=== PATIENT | male | born 1965 | race Caucasian/White ===

== ENCOUNTER → 2017-10-16 | Outpatient (CLI) | payer OTHER ==
--- NOTE | 2017-10-16 08:32 | MR ---
EXAMINATION TYPE: MR cervical spine wo con DATE OF EXAM ORDERED: 10/16/2017 8:16 AM HISTORY: Neck Pain With Radiculopathy. TECHNOLOGIST HISTORY AT TIME OF EXAM: Pain and Numbness in Neck and Right Shoulder x2 - 3 years COMPARISON: None. TECHNIQUE: Multiplanar, multiecho imaging of the cervical spine was obtained without contrast on a 1 .5 jolene magnet. FINDINGS: Paraspinal soft tissues are normal. Vertebral body height and alignment are maintained. Atlantoaxial relationships are normal. Cord signal is maintained. At C2-C3, no definite abnormality is seen. At C3-C4, there is mild disc space loss. There is mild, bilateral intervertebral foraminal narrowing. There is a right paracentral disc protrusion deforming the thecal sac with cord contact and mild dis placement. The facets are unremarkable. There is mild uncovertebral joint disease. At C4-C5, there is mild right-sided intervertebral foraminal narrowing. There is disc space loss and disc desiccation. There is no significant compressive discopathy. The facets are unremarkable. There is mild uncovertebral joint disease. At C5-C6, there is disc space loss. There is bilateral intervertebral foraminal narrowing. There is a small, mixed spondylitic bar present posteriorly mildly deforming the thecal sac without definite co rd contact. The facets are unremarkable. There is mild uncovertebral joint disease. At C6-C7, there is disc space loss and disc desiccation. There is mild, bilateral intervertebral fora derrell narrowing. There is a diffuse disc displacement deforming the thecal sac with cord contact but without compression. The facets are unremarkable. There is mild uncovertebral joint disease. At C7-T1, no definite abnormality is seen. IMPRESSION: 1. DIFFUSE DEGENERATIVE DISC DISEASE AND UNCOVERTEBRAL JOINT DISEASE. 2. MULTILEVEL INTERVERTEBRAL FORAMINAL NARROWING. 3. RIGHT PARACENTRAL DISC PROTRUSION, C3-4 DEFORMING THE THECAL SAC WITH CORD CONTACT AND MILD DISPLA CEMENT. 4. DIFFUSE DISC DISPLACEMENT, C6-7 DEFORMING THE THECAL SAC WITH CORD CONTACT BUT WITHOUT COMPRESSION .
== END | disposition home or self-care (01) ==
LOC: RADMRIMAIN 07:20
PROVIDERS: ATTEND Family Medicine
DX: M99.71 Connective tissue and disc stenosis of intervertebral foramina of cervical region (principal); M50.11 Cervical disc disorder with radiculopathy, high cervical region
CPT/HCPCS: 72141

== ENCOUNTER → 2018-12-27 | Outpatient (CLI) | payer OTHER ==
--- NOTE | 2018-12-29 03:18 | MR ---
EXAMINATION TYPE: MR lumbar spine wo con DATE OF EXAM: 12/27/2018 COMPARISON: None HISTORY: 53-year-old male Low back pain, radiculopathy TECHNIQUE: Multiplanar, multisequence images of the lumbar spine were acquired. FINDINGS: Vertebral body heights are preserved and alignment is maintained. Mildly decreased marrow signal diff usely on T2 without suspicious bone marrow replacement on T1. Findings suggest red marrow hyperplasia which can be seen with anemia, obesity, smoking, and chronic disease. Hypertrophic facet arthropathy mid to lower lumbar spine. Moderate to advanced degenerative disc disease, particularly at L4-L5 and L5-S1 with degenerated, jayde iccated, narrowed, and bulging discs. Conus medullaris is normal. No prevertebral paravertebral soft tissue abnormality seen. There is a component of mild congenital spinal canal narrowing mid to lower lumbar spine with AP kameron l dimension of 1.3 cm. At T12-L1, no spinal canal or neuroforaminal stenosis. At L1-L2, minimal bulging disc and mild facet degenerative change. No significant spinal canal or eron roforaminal stenosis. At L2-L3, there is diffuse disc bulge and facet degenerative change. Overall mild spinal canal narrow ing with mild bilateral neuroforaminal stenosis. At L3-L4, there is facet degenerative change and bulging disc off to the right contributing to modera te right neuroforaminal stenosis. No significant spinal canal stenosis. At L4-L5, there is diffuse disc bulge with hypertrophic facet arthropathy. Changes result in moderate to severe right and mild to moderate left neuroforaminal stenosis. Disc material at this level may a but the bilateral traversing L5 nerve roots. Impression onto the ventral thecal sac without significa nt spinal canal stenosis. At L5-S1, there is diffuse disc bulge with superimposed right paracentral disc protrusion which conta cts the traversing right S1 nerve root. Hypertrophic facet arthropathy with moderate to severe right and moderate left neuroforaminal stenosis. No spinal canal stenosis. IMPRESSION: 1. Moderate to advanced degenerative disc disease particularly at L4-L5 and L5-S1 as well as hypertro phic facet arthropathy mid to lower lumbar spine. Changes are superimposed on a mild congenital spina l canal stenosis. 2. Overall mild spinal canal stenosis at L2-L3. No renee canal compromise. 3. Variable neuroforaminal stenoses as outlined above, moderate to severe on the right at L4-L5 and L 5-S1. 4. Disc material at L4-L5 may abut the bilateral traversing L5 nerve roots. 5. A right paracentral disc herniation at L5-S1 contacts the traversing right S1 nerve root.
== END | disposition home or self-care (01) ==
LOC: RADMRIMAIN 15:02
PROVIDERS: ATTEND Physical Medicine & Rehabilitation
DX: M48.061 Spinal stenosis, lumbar region without neurogenic claudication (principal); M48.07 Spinal stenosis, lumbosacral region; M51.27 Other intervertebral disc displacement, lumbosacral region; M51.36 Other intervertebral disc degeneration, lumbar region; M51.37 Other intervertebral disc degeneration, lumbosacral region; M47.816 Spondylosis without myelopathy or radiculopathy, lumbar region
CPT/HCPCS: 72148

== ENCOUNTER → 2021-03-07 | Outpatient (CLI) | payer OTHER ==
--- NOTE | 2021-03-07 09:25 | CTL ---
EXAMINATION TYPE: CT Low Dose Lung DATE OF EXAM ORDERED: 03/07/2021 HISTORY: Long-term tobacco use. Lung cancer screening CT DLP: 138.[address] CTDI: 4.0 mGy Automated exposure control for dose reduction was used. SCREENING VISIT: Baseline COMPARISON: None TECHNIQUE: Low dose computed tomography scan was performed through the chest at 1 mm thick sections a nd reconstructed images in the coronal plane at [address] DIAGNOSTIC QUALITY: Satisfactory FINDINGS: LUNG NODULES: None. LUNGS: COPD: Severity: Mild. Fibrosis: Severity: Minimal Lymph nodes: No greater than 1cm. Other findings: None. RIGHT PLEURAL SPACE: Effusion: None Calcification: None Thickening: None Pneumothorax: None LEFT PLEURAL SPACE: Effusion: None Calcification: None Thickening: None Pneumothorax: None HEART: Heart Size: Normal. Coronary calcification: Mild. Pericardial effusion: None. OTHER FINDINGS: Upper abdomen: Postsurgical changes from gastric sleeve. Bony thorax: Moderate multilevel spurring. Supraclavicular region: None. Other: None IMPRESSION: Mild emphysematous change without suspicious nodules. CT LUNG RAD AND CT CHEST RECOMMENDATION: Lung-Rad 1 Negative: Continue annual screening with LDCT in 12 months. S Modifier (other clinically significant findings): None
== END | disposition home or self-care (01) ==
LOC: RADCTMAIN 08:50
DX: Z12.2 Encounter for screening for malignant neoplasm of respiratory organs (principal); J43.9 Emphysema, unspecified; Z87.891 Personal history of nicotine dependence
CPT/HCPCS: 71271

== ENCOUNTER 2021-12-02 08:20 | Day surgery (SDC) | payer BC ==
[2021-12-01 10:30] VITALS: BMI 37.3
[~2021-12-02 08:20] MED LIST: LACTATED RINGERS 1,000 ML IV SCH
[2021-12-02 08:58] VITALS: TEMP 98.1
[2021-12-02] MEDS ORDERED: PROPOFOL 10 MG/ML 20 ML VIAL IV ONE (09:41)
--- NOTE | 2021-12-02 10:02 | P.PCN ---
Date of Procedure: 12/02/21 Procedure(s) Performed: BRIEF HISTORY: Patient is a 56-year-old pleasant white male scheduled for an elective colonoscopy as a part of evaluation of prior history of colon polyps. Last colonoscopy was 8 years ago. PROCEDURE PERFORMED: Colonoscopy. PREOPERATIVE DIAGNOSIS: History of colon polyps. IV sedation per Anesthesia. PROCEDURE: After informed consent was obtained, the patient, was brought into the endoscopy unit. IV sedation was administered by Anesthesia under continuous monitoring. Digital rectal examination was normal. Initially the Olympus CF-160 flexible video colonoscope was then inserted in the rectum, gradually advanced into the cecum without any difficulty. Careful examination was performed as the scope was gradually being withdrawn. Ileocecal valve and the appendiceal orifice were visualized and appeared normal. Prep was excellent. Mucosa of the cecum, ascending colon, transverse colon, descending colon, sigmoid colon, and rectum appeared normal. Retroflexion was performed in the rectum and no lesions were seen. The patient tolerated the procedure well. IMPRESSION: Normal-appearing colon from rectum to cecum with no evidence of colorectal neoplasia. RECOMMENDATIONS: Findings of this examination were discussed with the patient as well as his family. He was advised to have a repeat screening colonoscopy in 10 years..
[2021-12-02 10:14] VITALS: RESP 16
[2021-12-02 10:25] VITALS: BP 122/81; PULSE 89
== END 2021-12-02 10:37 | disposition home or self-care (01) ==
LOC: ORWHC2ENDO 08:20
PROVIDERS: ATTEND Internal Medicine Gastroenterology
DX: Z12.11 Encounter for screening for malignant neoplasm of colon (principal); Z86.010 Personal history of colon polyps; I10 Essential (primary) hypertension; E78.5 Hyperlipidemia, unspecified; E66.9 Obesity, unspecified; Z68.41 Body mass index [BMI] 40.0-44.9, adult; Z79.899 Other long term (current) drug therapy
CPT/HCPCS: J2704; G0105; 45378

== ENCOUNTER → 2022-04-15 | Outpatient (CLI) | payer OTHER ==
--- NOTE | 2022-04-15 10:13 | CTL ---
EXAMINATION TYPE: CT Low Dose Lung DATE OF EXAM ORDERED: 04/15/2022 COMPARISON: 03/07/2021 HISTORY: . Low Dose CT Lung Screening CT DLP: 132.[address] CTDI: 4.0 mGy IV CONTRAST USED: None. SCREENING VISIT: First visit COMPARISON: None. TECHNIQUE: Low dose computed tomography scan was performed through the chest at 1 millimeter thick se ctions and reconstructed images in the coronal plane at [address] DIAGNOSTIC QUALITY: Satisfactory FINDINGS: LUNG NODULES: Not presentLeft lung: no nodules identified.Right lung: no nodules identified. LUNGS: COPD: Severity: Mild Fibrosis: Severity: Minimal Lymph nodes: None Other findings: None RIGHT PLEURAL SPACE: Effusion: None Calcification: None Thickening: None Pneumothorax: None LEFT PLEURAL SPACE: Effusion: None Calcification: None Thickening: None Pneumothorax: None HEART: Heart Size: Mildly enlarged Coronary calcification: Mild Pericardial effusion: None OTHER FINDINGS: Upper abdomen: No significant abnormality Bony thorax: Degenerative changes Supraclavicular region: No significant abnormalityOther: No significant abnormalityI IMPRESSION: No suspicious nodules. Mild emphysematous change. FOLLOW UP CT CHEST RECOMMENDATION: Follow-up screening in one year CT LUNG RAD: LUNG RAD CATEGORY 1 negative
== END | disposition home or self-care (01) ==
LOC: RADCTMAIN 09:04
DX: Z12.2 Encounter for screening for malignant neoplasm of respiratory organs (principal); Z87.891 Personal history of nicotine dependence
CPT/HCPCS: 71271

== ENCOUNTER → 2022-05-15 | Outpatient (CLI) | payer BC ==
--- NOTE | 2022-05-16 02:23 | MR ---
EXAMINATION TYPE: MR lumbar spine wo con DATE OF EXAM: 05/15/2022 COMPARISON: 12/27/2018 HISTORY: BACK PAIN THAT RADIATES DOWN THE RIGHT SIDE AND LEFT OUTER THIGH X10 YEARS Multiplanar multi echo imaging of the lumbar spine with no contrast. The lumbar vertebra have normal alignment. There is degenerative disc space narrowing throughout the lumbar spine. There is small posterior disc bulging and herniation at L4-5 and L5-S1. There is a mild posterior disc bulge at L2-3. There is developmentally adequate spinal canal. No spinal stenosis. Sa croiliac joints are intact. The neural foramina are fairly well maintained. No evidence of focal bone destruction. No paraspinal mass. Lumbar nerve roots appear fairly normal. IMPRESSION: Spondylotic changes as above at several levels. Small posterior disc herniations at L4-5 and L5-S1 wh ich are improved compared to old exam. No fracture. No spinal stenosis.
== END | disposition home or self-care (01) ==
LOC: RADMRIMAIN 14:03
PROVIDERS: ATTEND Family Medicine
DX: M51.36 Other intervertebral disc degeneration, lumbar region (principal); M54.42 Lumbago with sciatica, left side; M62.81 Muscle weakness (generalized)
CPT/HCPCS: 72148

== ENCOUNTER → 2023-04-07 | Outpatient (CLI) | payer BC, OTHER ==
--- NOTE | 2023-04-07 11:38 | MR ---
EXAMINATION TYPE: MR lumbar spine wo con DATE OF EXAM: 04/07/2023 COMPARISON: 05/15/2022 HISTORY: Lower back pain, BLE radiculopathy. Hx surgery 1996. TECHNIQUE: T1 and T2 axial and sagittal images of the lumbar spine are submitted. FINDINGS: There is no abnormal signal seen within the visualized spinal cord or paraspinal soft tissu es. At L1-2 there is mild hypertrophy of the facets. No disc herniation or canal stenosis. At L2-3 there is vacuum disc with severe degenerative disc disease. Schmorl's nodes involving the end plates seen. There is hypertrophic facet arthropathy. No canal stenosis or foraminal encroachment. At L3-4 there is advanced centrilobular arthropathy. There is mild to moderate degenerative disc dise ase and circumferential disc bulging. Bulging greater laterally to the right with mild right foramina l encroachment. At L4-5 there is severe degenerative disc disease with vacuum disc and severe facet arthropathy. Ther e is a broad-based central and right paracentral disc bulging or protrusion. There is mild left and m oderate right foraminal encroachment. Mass effect upon the exiting right nerve root suspected. Mild c entral stenosis. Small focal disc extrusion into the right lateral recess not excluded. At L5-S1 there is advanced facet arthropathy. There is severe degenerative disc disease and moderate bilateral foraminal encroachment. No canal stenosis. Stable broad-based disc herniation at L5-S1 with enlargement of the right nerve root and mass effect upon the S1 exiting nerve root. Small extruded disc fragment in the lateral recess and the differenti al diagnosis. IMPRESSION: 1. Multilevel severe degenerative disc disease with mild canal stenosis L4-L5. There is small focal r ight paracentral area of signal extending into the right lateral recess may represent a more focal di sc herniation component. Correlate for radiculopathy at this level. Findings similar to prior exam. 2. Stable broad-based disc herniation at L5-S1 with enlargement of the right nerve root and mass effe ct upon the S1 exiting nerve root. Small extruded disc fragment in the lateral recess and the differe ntial diagnosis.
== END | disposition home or self-care (01) ==
LOC: RADMRIMAIN 09:14
DX: M51.16 Intervertebral disc disorders with radiculopathy, lumbar region (principal); M99.73 Connective tissue and disc stenosis of intervertebral foramina of lumbar region
CPT/HCPCS: 72148

== ENCOUNTER → 2023-04-16 | Outpatient (CLI) | payer BC, OTHER ==
--- NOTE | 2023-04-16 11:33 | CTL ---
EXAMINATION TYPE: CT Low Dose Lung DATE OF EXAM ORDERED: 04/16/2023 HISTORY: 57-year-old male with Z8 9.897, current smoker with 20 pack-year history, personal history o f nicotine dependence,. Lung cancer screening CT DLP: [address] CTDI: 3.48 mGy Automated exposure control for dose reduction was used. SCREENING VISIT: Annual follow-up COMPARISON: 04/15/2022 TECHNIQUE: Low dose computed tomography scan was performed through the chest with coronal and sagitta l reconstructions. CT DIAGNOSTIC QUALITY: Satisfactory FINDINGS: Heart normal size without pericardial effusion. Mildly aneurysmal upper descending thoracic aorta 3.7 cm is unchanged. No thoracic lymphadenopathy by CT size criteria. Mild emphysematous change. Mild diffuse bronchial wall thickening. Mild hazy posterior atelectasis al vandana the dependent portion of the lungs. A couple 3 mm left mid lung pulmonary nodule located along the Major fissure unchanged. No consolidation or pleural effusion. Visualized upper abdomen shows postsurgical change of sleeve gastrectomy. [id number] degenerative disc disease lower thoracic spine. IMPRESSION: 1. Lungs RADS 2, benign. No new suspicious pulmonary nodules. 2. COPD with mild emphysema. 3. 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 LUNG RAD AND CT CHEST RECOMMENDATION: Lung-Rad 2 Benign Appearance or Behavior: Continue annual sc reening with LDCT in 12 months. S Modifier (other clinically significant findings): None
== END | disposition home or self-care (01) ==
LOC: RADCTMAIN 08:56
DX: Z12.2 Encounter for screening for malignant neoplasm of respiratory organs (principal); F17.210 Nicotine dependence, cigarettes, uncomplicated; J43.9 Emphysema, unspecified; I71.23 Aneurysm of the descending thoracic aorta, without rupture
CPT/HCPCS: 71271

== ENCOUNTER → 2024-04-20 | Outpatient (CLI) | payer OTHER ==
--- NOTE | 2024-04-21 00:09 | US ---
EXAMINATION TYPE: US Aorta Screening DATE OF EXAM: 04/20/2024 COMPARISON: NONE CLINICAL INDICATION: Male, 58 years old with history of Z13.6 SCREEN CARDIOVASC DISEASE; screening TECHNIQUE: Multiple sonographic images of the abdominal aorta are obtained. FINDINGS: EXAM MEASUREMENTS: Abdominal Aorta: Proximal: 2.8 x 2.6cm Mid: 2.0 x 2.0cm Distal: 1.8 x 2.1cm Bifurcation: Right Iliac: 1.1 x 1.4cm Left Iliac: 1.0 x 1.4cm HEALTH PROMOTION EDUCATOR NOTES: *Limitations due to overlying bowel gas. no evidence of AAA as visualized at this time. Ectasia noted proximally IMPRESSION: 1. Aorta tapers normally to its visualized course. 2. No aneurysmal dilatation or fusiform prominence evident.
== END | disposition home or self-care (01) ==
LOC: RADUSWWP 08:13
PROVIDERS: ATTEND Family Medicine
DX: Z13.6 Encounter for screening for cardiovascular disorders (principal)
CPT/HCPCS: 76706

== ENCOUNTER → 2024-04-25 | Outpatient (CLI) | payer OTHER ==
--- NOTE | 2024-04-26 09:02 | CTL ---
EXAMINATION TYPE: CT Low Dose Lung DATE OF EXAM ORDERED: 04/25/2024 HISTORY: . Low Dose CT Lung Screening CT DLP: 147.[address] CTDI: 4.0 mGy IV CONTRAST USED: None. SCREENING VISIT: 4 COMPARISON: 04/16/2023 TECHNIQUE: Low dose computed tomography scan was performed through the chest at 1 millimeter thick se ctions and reconstructed images in the coronal plane at [address] DIAGNOSTIC QUALITY: Satisfactory FINDINGS: LUNG NODULES: 3 mm pulmonary nodule or densities left midlung zone along the major fissure unchanged. No new nodules evident. LUNGS: COPD: Severity: Mild Fibrosis: Severity:None Lymph nodes: None Other findings: None RIGHT PLEURAL SPACE: Effusion: None Calcification: None Thickening: None Pneumothorax: None LEFT PLEURAL SPACE: Effusion: None Calcification: None Thickening: None Pneumothorax: None HEART: Heart Size: Mildly enlarged Coronary calcification: Mild Pericardial effusion: None OTHER FINDINGS: Upper abdomen: No significant abnormality Bony thorax: Degenerative changes Supraclavicular region: No significant abnormalityOther: No significant abnormalityI IMPRESSION: Sub-5 mm pulmonary nodularity unchanged. FOLLOW UP CT CHEST RECOMMENDATION: Follow-up screening in one year CT LUNG RAD: LUNG RAD CATEGORY 2 benign appearance and/or behavior.
== END | disposition home or self-care (01) ==
LOC: RADCTMAIN 16:13
PROVIDERS: ATTEND Family Medicine
DX: Z12.2 Encounter for screening for malignant neoplasm of respiratory organs (principal); R91.8 Other nonspecific abnormal finding of lung field; Z87.891 Personal history of nicotine dependence
CPT/HCPCS: 71271

== ENCOUNTER → 2024-11-27 | Outpatient (CLI) | payer OTHER ==
[~2024-11-27] MED LIST changes: -LACTATED RINGERS 1,000 ML IV SCH; +REGADENOSON 0.4 MG/5 ML SYRINGE IV PRN
--- NOTE | 2024-11-27 12:06 | CA ---
Lexiscan Nuclear Stress Test Report Name: Marcial Vivas Exam Date: 11/27/2024 10:42 Exam Location: [facility] Ht (in): 71 Wt (lb): 265 BSA: 2.38 Ordering Phys: Matthew Leblanc DO Referring Phys: Yanelis Ruiz Technologist: JALEN FALK Age: 59 Gender: M : 1965 Procedure CPT: Indications: R07.89 Atypical Chest Pain ICD-10 Codes: Patient History: Medications: SEE LIST Meds past 24 hrs: Pretest Chest Pain: STRESS TEST Lexiscan Protocol Exercise Duration (min:sec): 01:[address] Depressions (mm): Angina Score: Moya Score: Resting HR (bpm): 68 Peak HR (bpm): 90 Resting BP (mmHg): 138 / 86 Peak BP (mmHg): 130 / 67 MPHR: 161 Target HR: 137 % MPHR: 56 METS: 1.0 Total Dose: Peak Dose: Atropine: Double Product: 62440 BP Response: Stress Termination: INFUSION COMPLETE Stress Symptoms: NO SYMPTOMS Stress Summary: ECG ANALYSIS Resting ECG: Baseline EKG shows sinus rhythm normal axis normal intervals Stress ECG: Patient was given intravenous Lexiscan as a protocol did not have chest pain or diagnostic ST segment depression CONCLUSIONS Negative stress test by EKG criteria Cardiolite portion of the stress test will be reported separately Dr. Daniel Villafana MD (Electronically Signed) Final Date: 27 November 2024 12:05
== END | disposition home or self-care (01) ==
LOC: RADNMMAIN 08:23
PROVIDERS: ATTEND Family Medicine
DX: R07.89 Other chest pain (principal)
CPT/HCPCS: 93017; J2785

== ENCOUNTER → 2025-01-18 | Outpatient (CLI) | payer BC ==
--- NOTE | 2025-01-18 09:42 | XR ---
EXAMINATION TYPE: XR shoulder complete BILAT DATE OF EXAM: 01/18/2025 9:38 AM INDICATION: Patient age:Male; 59 years old; Reason for study: [id number] DIANA SHLD PAIN; pain COMPARISON: None TECHNIQUE: Both shoulders were examined in AP, internally rotated and scapular Y projections. . FINDINGS: No evidence of acute osseous pathology, joint dislocation, or soft tissue swelling. The remaining por tions of the visualized chest are unremarkable. IMPRESSION: No acute osseous pathology. [facility], , 01/18/2025 9:40 AM
== END | disposition home or self-care (01) ==
LOC: RADXRYALE 09:23
PROVIDERS: ATTEND Physician Assistant
DX: M25.511 Pain in right shoulder (principal); M25.512 Pain in left shoulder